=== PATIENT | female | born 1930 | race Caucasian/White ===

== ENCOUNTER 2017-06-12 13:21 | Day surgery (SDC) | payer OTHER ==
[~2017-06-12 13:21] MED LIST: ASPI81 PO; BP MEDICATION; CHOLESTEROL MED; DARV PO; POTA-243 PO
[2017-06-12 14:45] VITALS: BP 140/67; PULSE 68; O2SAT 96
--- NOTE | 2017-06-12 15:04 | RADRPT ---
EXAM DATE/TIME: 06/12/2017 13:44 [facility] COMPARISON: No previous studies available for comparison. EXTERNAL COMPARISON: [facility], US THYROID, May 23 2017 INDICATIONS : Right thyroid mass. MEDICAL HISTORY : Hypercholesterolemia. Hypertension. Osteoporosis. SURGICAL HISTORY : Hysterectomy. Thyroidectomy. ENCOUNTER: Initial ACUITY: 3 weeks PAIN SCORE: 2/10 LOCATION: Right neck ORGAN: Right thyroid lobe 4.0 x 4.2 x 2.7 cm SPECIMENS: Four fine needle aspirate(s) submitted for pathologic evaluation. DEVICE: 22 gauge needle Post procedure scanning reveals no hematoma or other complication. The possibility does exist that the tissue obtained will be non-diagnostic. If the sample is non-luis gnostic a repeat biopsy or surgical biopsy may need to be performed. TECHNIQUE: 1. Ultrasound guidance for needle biopsy. 2. Needle biopsy. The risks, benefits, and alternatives to ultrasound guided needle biopsy were explained to the patien t in detail including the risk of bleeding and infection. Written and verbal informed consent was ob tained. With the patient on the ultrasound table, images were obtained. Overlying skin was prepped and drape d in the usual sterile fashion and Lidocaine was utilized as a local anesthetic. A needle was advanced into the identified target and the number of specimens as above obtained and nunez bmitted for pathologic evaluation. The patient tolerated the procedure well and left the ultrasound suite in stable condition. CONCLUSION: 1. Ultrasound-guided fine-needle aspirations of right thyroid lobe nodule. Shivam Alexander MD on June 12, 2017 at 15:02 Board Certified Radiologist. This report was verified electronically.
[2017-06-12 15:05] VITALS: BP 133/76; PULSE 62; RESP 16; TEMP 98.6; O2SAT 94
[2017-06-12 15:15] VITALS: BP 134/68; PULSE 68; RESP 16; O2SAT 96
[2017-06-13] MEDS ORDERED: LIDOCAINE HCL 1% 20 ML VIAL ONE (08:55)
== END 2017-06-12 15:20 | disposition home or self-care (01) ==
LOC: HRAD 13:21 → HRIP 13:22 → HRAD 15:20
PROVIDERS: ATTEND Internal Medicine
DX: E07.89 Other specified disorders of thyroid (principal); I10 Essential (primary) hypertension; E78.00 Pure hypercholesterolemia, unspecified; M81.0 Age-related osteoporosis without current pathological fracture; Z90.710 Acquired absence of both cervix and uterus
CPT/HCPCS: 10022; 76942; 88172; 88173

== ENCOUNTER 2018-03-03 13:37 | Emergency (ER) | payer OTHER ==
[~2018-03-03] VITALS: Ht 152.4 cm; Wt 47.0 kg
[2018-03-03] MEDS ORDERED: IOHEXOL 350 MG/ML 10 ML VIAL (for RAD DIAG) IVCONTRAST ONE ×2 (13:38→17:04)
[2018-03-03 13:49] VITALS: BP 150/88; PULSE 68; RESP 19; TEMP 98; O2SAT 94
[2018-03-03] MEDS ORDERED: SODIUM CHLORID 0.9% 500 ML INJ 500 ML IV ONE (14:00)
[2018-03-03 14:18] LABS: AUTOMATED NEUTROPHIL # 7.8 TH/MM3 (1.8-7.7); BASOPHIL # 0.1 TH/MM3 (0-0.2); BASOPHIL % 0.6 % (0.0-2.0); EOSINOPHIL % 0.2 % (0.0-4.0); HEMATOCRIT 38.2 % (35.0-46.0); HEMOGLOBIN 13.2 GM/DL (11.6-15.3); LYMPH % 13.4 % (9.0-44.0); LYMPHOCYTE # 1.3 TH/MM3 (1.0-4.8); MEAN CORPUSCULAR HEMOGLOBIN 30.8 PG (27.0-34.0); MEAN CORPUSCULAR HGB CONC 34.6 % (32.0-36.0); MEAN PLATELET VOLUME 9.3 FL (7.0-11.0); MONO % 5.5 % (0.0-8.0); MONOCYTE # 0.5 TH/MM3 (0-0.9); NEUT % 80.3 % (16.0-70.0); PLATELET COUNT 152 TH/MM3 (150-450); RED BLOOD COUNT 4.29 MIL/MM3 (4.00-5.30); RED CELL DISTRIBUTION WIDTH 12.9 % (11.6-17.2); WHITE BLOOD COUNT 9.8 TH/MM3 (4.0-11.0)
--- NOTE | 2018-03-03 14:25 | RADRPT ---
EXAM DATE/TIME: 03/03/2018 14:02 [facility] COMPARISON: No previous studies available for comparison. INDICATIONS : Chest discomfort; vomiting. MEDICAL HISTORY : Hypercholesterolemia. Hypertension. Osteoporosis. SURGICAL HISTORY : None. ENCOUNTER: Initial ACUITY: 1 day PAIN SCORE: 0/10 LOCATION: Bilateral chest FINDINGS: Elevation of the left hemidiaphragm. Moderate parenchymal changes right base. Cardiomegaly with mil d interstitial edema. There is no pneumothorax or pleural effusion. CONCLUSION: Underated moderate and consolidated changes right lower lobe. David Macias MD FACR on March 03, 2018 at 14:13 Board Certified Radiologist. This report was verified electronically.
[2018-03-03 14:30] LABS: ALBUMIN 3.3 GM/DL (3.4-5.0); ALT (GPT) 22 U/L (10-53); AST (GOT) 31 U/L (15-37); BICARBONATE 23.5 MEQ/L (21.0-32.0); BLOOD UREA NITROGEN 19 MG/DL (7-18); CALCIUM 9.3 MG/DL (8.5-10.1); CHLORIDE 102 MEQ/L (98-107); CREATININE 0.85 MG/DL (0.50-1.00); GLOMERULAR FILTRATION RATE 63 ML/MIN (>89); GLUCOSE,RANDOM 135 MG/DL (74-106); SODIUM (NA) 138 MEQ/L (136-145)
[2018-03-03 14:33] LABS: ALKALINE PHOSPHATASE 72 U/L (45-117); TOTAL BILIRUBIN ADULT 1.1 MG/DL (0.2-1.0); TOTAL PROTEIN 7.6 GM/DL (6.4-8.2)
--- NOTE | 2018-03-03 16:00 | RADRPT ---
EXAM DATE/TIME: 03/03/2018 15:23 [facility] COMPARISON: No previous studies available for comparison. INDICATIONS : Fall,right side pain IV CONTRAST: 80 cc Omnipaque 350 (iohexol) IV ; Cumulative dose for multiple exams. RADIATION DOSE: 5.06 CTDIvol (mGy) ; Combined studies - Thorax/Abdomen/Pelvis MEDICAL HISTORY : Hypertension. SURGICAL HISTORY : Thyroidectomy. Hysterectomy. ENCOUNTER: Initial ACUITY: 3 days PAIN SCALE: 7/10 LOCATION: Right chest TECHNIQUE: Volumetric scanning of the chest was performed. Using automated exposure control and adjustment of t he mA and/or kV according to patient size, radiation dose was kept as low as reasonably achievable to obtain optimal diagnostic quality images. DICOM format image data is available electronically for review and comparison. Follow-up recommendations for detected pulmonary nodules are based at a minimum on nodule size and pa tient risk factors according to Fleischner Society Guidelines. FINDINGS: LUNGS: Mild interstitial prominence is present without pneumothorax. PLEURA: Trace pleural effusion on the right MEDIASTINUM: Mild cardiomegaly with moderate coronary calcifications. AXILLAE: Within normal limits. No lymphadenopathy. SKELETAL: No displaced fracture MISCELLANEOUS: 5 cm right renal cyst. 1 cm hemangioma right lobe of the liver 4.3 cm right thyroid nodule CONCLUSION: Negative for pneumothorax or rib fracture. Right renal cyst 4.3 cm right thyroid nodule David Macias MD FACR on March 03, 2018 at 15:55 Board Certified Radiologist. This report was verified electronically.
--- NOTE | 2018-03-03 16:02 | RADRPT ---
EXAM DATE/TIME: 03/03/2018 15:23 [facility] COMPARISON: No previous studies available for comparison. INDICATIONS : Fall right side pain IV CONTRAST: 80 cc Omnipaque 350 (iohexol) IV ; Cumulative dose for multiple exams. ORAL CONTRAST: No oral contrast ingested. RADIATION DOSE: 5.06 CTDIvol (mGy) ; Combined studies - Thorax/Abdomen/Pelvis MEDICAL HISTORY : Hypertension. SURGICAL HISTORY : Thyroidectomy. Hysterectomy. ENCOUNTER: Initial ACUITY: 1 day PAIN SCALE: 7/10 LOCATION: Right Abdomen TECHNIQUE: Volumetric scanning of the abdomen and pelvis was performed. Using automated exposure control and ad justment of the mA and/or kV according to patient size, radiation dose was kept as low as reasonably achievable to obtain optimal diagnostic quality images. DICOM format image data is available electro nically for review and comparison. FINDINGS: Trace to small right pleural effusion 1 cm hemangioma right lobe of the liver 5.3 cm right renal cyst Spleen, pancreas and left kidney unremarkable No free fluid Pelvic contents are unremarkable the decompressed bladder Review of bone windows reveals degenerative changes without fracture. Right hip appears normal. CONCLUSION: Negative for acute traumatic injury. Trace right pleural effusion, that may be related to congestive failure. David Macias MD FACR on March 03, 2018 at 15:57 Board Certified Radiologist. This report was verified electronically.
[2018-03-03] MEDS ORDERED: ONDANSETRON ODT 4 MG TAB PO ONE (16:30)
[2018-03-03] MEDS ORDERED: traMADol HCL 50 MG TAB PO ONE (16:30)
[2018-03-03 16:53] LABS: AMORPHOUS SEDIMENT, URINE RARE; BACTERIA, URINE RARE /hpf; BILIRUBIN, URINE NEG (NEG); BLOOD, URINE NEG (NEG); GLUCOSE,URINE NEG (NEG); KETONE, URINE TRACE mg/dL (NEG); MUCUS URINE FEW /lpf (OCC); NITRITE,URINE NEG (NEG); PH, URINE 6.5 (5.0-8.5); SQUAMOUS EPITHELIAL CELL URINE 1 /hpf (0-5); URINE COLOR YELLOW (YELLW/STRAW); URINE LEUKOCYTE ESTERASE LARGE (NEG)
[2018-03-03] MEDS ORDERED: cefTRIAXone INJ 1,000 MG in SODIUM CHLORIDE 0.9% INJ 100 ML IV ONE (17:15)
[2018-03-03] MEDS ORDERED: CEPH-460 PO (17:21)
--- NOTE | 2018-03-03 17:21 | PD ---
HPI Chief Complaint: Fall Time Seen by Provider: 13:43 Travel History International Travel<30 days: No Contact w/Intl Traveler<30days: No Traveled to known affect area: No History of Present Illness HPI This is an 87-year-old female who presents to the emergency department having fallen 4 days ago hurting her right side. She reports severe right-sided pain, constant, worse with movement, improved with rest. She says she had a difficulty getting up after she fell. She did not hit her head. For the past several days she has had increasing pain and she has had some vomiting this morning and feels nauseous. She has been having some trouble eating. She denies any chest pain or shortness of breath. PFSH Past Medical History High Cholesterol: Yes Diminished Hearing: No Hypertension: Yes Musculoskeletal: Yes (OSTEOPOROSIS) ?: Not Past Surgical History Hysterectomy: Yes Other Surgery: Yes (THYROIDECTOMY) Social History Alcohol Use: No Tobacco Use: Yes (1 AND 1/2 PPD) Substance Use: No Allergies-Medications (Allergen,Severity, Reaction): Coded Allergies: No Known Allergies (Verified Allergy, Unknown, 04/10/10) Reported Meds & Prescriptions Reported Meds & Active Scripts Active Keflex (Cephalexin) 500 Mg Cap 500 Mg PO Q12H 7 Days Darvocet-N 100 (Propoxyphene Napsylate/Acetam) Tab 1 Tab PO Q6 Reported [Cholesterol Med] [Bp Medication] Aspirin 81 Mg Tab 81 Mg PO DAILY K-Dur (Potassium Chloride) 10 Meq Tabcr 0 PO UNKNOWN DOSE Review of Systems Except as stated in HPI: all other systems reviewed are Neg Physical Exam Narrative GENERAL: Frail elderly female in no acute distress. SKIN: Focused skin assessment warm and dry. HEAD: Atraumatic. Normocephalic. EYES: Pupils equal and round. No injection or drainage. ENT: Moist mucous membranes NECK: Trachea midline. CARDIOVASCULAR: Regular rate and rhythm. No murmur appreciated. RESPIRATORY: Clear to auscultation. Breath sounds equal bilaterally. GASTROINTESTINAL: Abdomen soft, non-tender, nondistended. MUSCULOSKELETAL: Tender to palpation over the right posterior rib cage NEUROLOGICAL: Awake and alert. No obvious cranial nerve deficits. Moving all extremities. PSYCHIATRIC: Appropriate mood and affect; insight and judgment normal. Data Data Last Documented VS Vital Signs Date Time Temp Pulse Resp B/P (MAP) Pulse Ox O2 Delivery O2 Flow Rate FiO2 03/03/18 13:49 98.0 68 19 150/88 (108) 94 Room Air Orders Orders Complete Blood Count With Diff (03/03/18 13:50) Comprehensive Metabolic Panel (03/03/18 13:50) ^ Insert Iv (03/03/18 13:50) Urinalysis - C+S If Indicated (03/03/18 13:50) Creatine Kinase (Cpk) (03/03/18 13:50) Sodium Chlorid 0.9% 500 Ml Inj (Ns 500 M (03/03/18 14:00) Chest, Single Ap (03/03/18 ) Ct Thorax/ Chest W Iv Contrast (03/03/18 ) Ct Abd/Pel W Iv Contrast(Rout) (03/03/18 ) Iohexol 350 Inj (Omnipaque 350 Inj) (03/03/18 13:38) Tramadol (Ultram) (03/03/18 16:30) Ondansetron Odt (Zofran Odt) (03/03/18 16:30) Urine Culture (03/03/18 16:27) Ceftriaxone Inj (Rocephin Inj) (03/03/18 17:15) Labs Laboratory Tests Test 03/03/18 14:00 03/03/18 16:27 White Blood Count 9.8 TH/MM3 Red Blood Count 4.29 MIL/MM3 Hemoglobin 13.2 GM/DL Hematocrit 38.2 % Mean Corpuscular Volume 89.0 FL Mean Corpuscular Hemoglobin 30.8 PG Mean Corpuscular Hemoglobin Concent 34.6 % Red Cell Distribution Width 12.9 % Platelet Count 152 TH/MM3 Mean Platelet Volume 9.3 FL Neutrophils (%) (Auto) 80.3 % Lymphocytes (%) (Auto) 13.4 % Monocytes (%) (Auto) 5.5 % Eosinophils (%) (Auto) 0.2 % Basophils (%) (Auto) 0.6 % Neutrophils # (Auto) 7.8 TH/MM3 Lymphocytes # (Auto) 1.3 TH/MM3 Monocytes # (Auto) 0.5 TH/MM3 Eosinophils # (Auto) 0.0 TH/MM3 Basophils # (Auto) 0.1 TH/MM3 CBC Comment AUTO DIFF Differential Comment AUTO DIFF CONFIRMED Platelet Estimate NORMAL Platelet Morphology Comment NORMAL Red Cell Morphology Comment NORMAL Blood Urea Nitrogen 19 MG/DL Creatinine 0.85 MG/DL Random Glucose 135 MG/DL Total Protein 7.6 GM/DL Albumin 3.3 GM/DL Calcium Level 9.3 MG/DL Alkaline Phosphatase 72 U/L Aspartate Amino Transf (AST/SGOT) 31 U/L Alanine Aminotransferase (ALT/SGPT) 22 U/L Total Bilirubin 1.1 MG/DL Sodium Level 138 MEQ/L Potassium Level 3.5 MEQ/L Chloride Level 102 MEQ/L Carbon Dioxide Level 23.5 MEQ/L Anion Gap 13 MEQ/L Estimat Glomerular Filtration Rate 63 ML/MIN Total Creatine Kinase 47 U/L Urine Color YELLOW Urine Turbidity HAZY Urine pH 6.5 Urine Specific [place] 1.050 Urine Protein TRACE mg/dL Urine Glucose (UA) NEG mg/dL Urine Ketones TRACE mg/dL Urine Occult Blood NEG Urine Nitrite NEG Urine Bilirubin NEG Urine Urobilinogen 2.0 MG/DL Urine Leukocyte Esterase LARGE Urine RBC 6 /hpf Urine WBC 97 /hpf Urine Squamous Epithelial Cells 1 /hpf Urine Amorphous Sediment RARE Urine Bacteria RARE /hpf Urine Mucus FEW /lpf Microscopic Urinalysis Comment CULTURE INDICATED MDM Medical Decision Making Medical Screen Exam Complete: Yes Emergency Medical Condition: Yes Interpretation(s) No leukocytosis Electrolytes are reassuring Urinalysis demonstrates urinary tract infection Last 24 hours Impressions Chest X-Ray 03/03/18 0000 Signed Impressions: Service Date/Time: Saturday, March 03, 2018 14:02 - CONCLUSION: Underated moderate and consolidated changes right lower lobe. David Macias MD FACR Chest CT 03/03/18 0000 Signed Impressions: Service Date/Time: Saturday, March 03, 2018 15:23 - CONCLUSION: Negative for pneumothorax or rib fracture. Right renal cyst 4.3 cm right thyroid nodule David Macias MD FACR Abdomen/Pelvis CT 03/03/18 0000 Signed Impressions: Service Date/Time: Saturday, March 03, 2018 15:23 - CONCLUSION: Negative for acute traumatic injury. Trace right pleural effusion, that may be related to congestive failure. David Macias MD FACR Differential Diagnosis Rib fracture, pulmonary contusion, pneumothorax, liver laceration, pelvic fracture Narrative Course This is an 87-year-old female who had a fall 4 days ago reporting right-sided back pain and some vomiting. Her labs are all reassuring. CT chest abdomen pelvis is unremarkable with no obvious broken ribs, or underlying lung injury or liver injury. She does have a urinary tract infection which may be contributing to her symptoms. She was given a dose of Rocephin. I think the patient would also benefit from home health care for evaluation for fall risk. Otherwise patient I think the patient can be discharged home on oral antibiotics for urinary tract infection. Diagnosis Primary Impression: Urinary tract infection Qualified Codes: N30.01 - Acute cystitis with hematuria Patient Instructions: General Instructions Additional Instructions: If you develop fever, persistent vomiting, back pain, or inability to eat return to the emergency department as your urine infection may have progressed to a kidney infection. Complete your antibiotics as prescribed. Stay well hydrated with Gatorade or water. Followup with your primary care physician in 2-3 days if your symptoms have not resolved. Med/Other Pt SpecificInfo: Prescription(s) given Scripts Cephalexin (Keflex) 500 Mg Cap 500 MG PO Q12H for Infection for 7 Days, #14 CAP 0 Refills Prov: Danni Avendaño MD 03/03/18 Disposition: 01 DISCHARGE HOME Condition: Stable Danni Avendaño MD March 03, 2018 17:21
[2018-03-03 18:34] VITALS: BP 158/89; PULSE 104; RESP 12; O2SAT 94
== END 2018-03-03 19:03 | disposition home or self-care (01) ==
LOC: NEPC 13:37
DX: N30.01 Acute cystitis with hematuria (principal); F17.200 Nicotine dependence, unspecified, uncomplicated; E78.00 Pure hypercholesterolemia, unspecified; I10 Essential (primary) hypertension
CPT/HCPCS: 71045; 71260; 74177; 80053; 81001; 82550; 85025; 87086; 96361; 96365; 99285; J0696; J7040; Q9967

== ENCOUNTER 2018-03-29 10:46 | Observation (INO) | payer MEDICARE, OTHER ==
[~2018-03-29 10:46] MED LIST changes: +CEPH-460 PO
[2018-03-29 10:48] VITALS: BP 121/65; PULSE 75; RESP 16; TEMP 97.7; O2SAT 96
--- NOTE | 2018-03-29 11:02 | PD ---
HPI Chief Complaint: General Weakness Time Seen by Provider: 10:57 Travel History International Travel<30 days: No Contact w/Intl Traveler<30days: No Traveled to known affect area: No History of Present Illness HPI Family brings the patient in for generalized weakness so severe now that she is not unable to ambulate without assistance. She was brought previously she was not quite as bad per family, but she was found and diagnosed with a UTI. Despite getting medications for antibiotics for the UTI she does not seem to be improving. PCP is No known drug allergies Past medical history consistent with hypercholesterolemia, hypertension, hysterectomy, osteoporosis, and the patient also had a thyroidectomy and also has a social history of being a 1-1/2 pack per day cigarette smoker PFS Past Medical History High Cholesterol: Yes Diminished Hearing: No Hypertension: Yes Musculoskeletal: Yes (OSTEOPOROSIS) Past Surgical History Hysterectomy: Yes Other Surgery: Yes (THYROIDECTOMY) Social History Alcohol Use: No Tobacco Use: Yes (1 AND 1/2 PPD) Substance Use: No Allergies-Medications (Allergen,Severity, Reaction): Coded Allergies: No Known Allergies (Verified Allergy, Unknown, 04/10/10) Reported Meds & Prescriptions Reported Meds & Active Scripts Active Darvocet-N 100 (Propoxyphene Napsylate/Acetam) Tab 1 Tab PO Q6 Reported [Cholesterol Med] [Bp Medication] Aspirin 81 Mg Tab 81 Mg PO DAILY K-Dur (Potassium Chloride) 10 Meq Tabcr 0 PO UNKNOWN DOSE Review of Systems General / Constitutional: No: Fever Eyes: No: Visual changes HENT: No: Headaches Cardiovascular: No: Chest Pain or Discomfort Respiratory: No: Shortness of Breath Gastrointestinal: No: Abdominal Pain Genitourinary: No: Dysuria Musculoskeletal: No: Pain Skin: No Rash Neurologic: Positive: Weakness (Generalized) Psychiatric: No: Depression Endocrine: No: Polydipsia Hematologic/Lymphatic: No: Easy Bruising Physical Exam Narrative GENERAL: Pleasant appearing elderly lady SKIN: Warm and dry. HEAD: Atraumatic. Normocephalic. EYES: Pupils equal and round. No scleral icterus. No injection or drainage. ENT: No nasal bleeding or discharge. Mucous membranes pink and moist. NECK: Trachea midline. No JVD. CARDIOVASCULAR: Regular rate and rhythm. RESPIRATORY: No accessory muscle use. Clear to auscultation. Breath sounds equal bilaterally. GASTROINTESTINAL: Abdomen soft, non-tender, nondistended. MUSCULOSKELETAL: Extremities without clubbing, cyanosis, or edema. No obvious deformities. NEUROLOGICAL: Awake and alert. No obvious cranial nerve deficits. Motor grossly within normal limits. Five out of 5 muscle strength in the arms and legs. Normal speech. PSYCHIATRIC: Appropriate mood and affect; insight and judgment normal. Data Data Last Documented VS Orders Orders Complete Blood Count With Diff (03/29/18 11:09) Comprehensive Metabolic Panel (03/29/18 11:09) Lipase (03/29/18 11:09) Prothrombin Time / Inr (Pt) (03/29/18 11:09) Act Partial Throm Time (Ptt) (03/29/18 11:09) Urinalysis - C+S If Indicated (03/29/18 11:09) Iv Access Insert/Monitor (03/29/18 11:09) Ecg Monitoring (03/29/18 11:09) Oximetry (03/29/18 11:09) NPO (03/29/18 11:09) Sodium Chloride 0.9% Flush (Ns Flush) (03/29/18 11:15) Electrocardiogram (03/29/18 11:09) B-Type Natriuretic Peptide (03/29/18 11:09) Ckmb (Isoenzyme) Profile (03/29/18 11:09) Magnesium (Mg) (03/29/18 11:09) Troponin I (03/29/18 11:09) Urine Culture (03/29/18 11:49) Ceftriaxone Inj (Rocephin Inj) (03/29/18 12:45) Admit Order (Ed Use Only) (03/29/18 13:41) Labs Laboratory Tests Test 03/29/18 11:24 03/29/18 11:49 White Blood Count 7.4 TH/MM3 Red Blood Count 4.49 MIL/MM3 Hemoglobin 13.5 GM/DL Hematocrit 40.0 % Mean Corpuscular Volume 89.0 FL Mean Corpuscular Hemoglobin 30.0 PG Mean Corpuscular Hemoglobin Concent 33.8 % Red Cell Distribution Width 13.0 % Platelet Count 175 TH/MM3 Mean Platelet Volume 9.7 FL Neutrophils (%) (Auto) 68.9 % Lymphocytes (%) (Auto) 17.7 % Monocytes (%) (Auto) 12.3 % Eosinophils (%) (Auto) 0.7 % Basophils (%) (Auto) 0.4 % Neutrophils # (Auto) 5.1 TH/MM3 Lymphocytes # (Auto) 1.3 TH/MM3 Monocytes # (Auto) 0.9 TH/MM3 Eosinophils # (Auto) 0.1 TH/MM3 Basophils # (Auto) 0.0 TH/MM3 CBC Comment DIFF FINAL Differential Comment Prothrombin Time 11.7 SEC Prothromb Time International Ratio 1.2 RATIO Activated Partial Thromboplast Time 28.0 SEC Blood Urea Nitrogen 27 MG/DL Creatinine 0.83 MG/DL Random Glucose 87 MG/DL Total Protein 7.8 GM/DL Albumin 3.0 GM/DL Calcium Level 8.4 MG/DL Magnesium Level 2.1 MG/DL Alkaline Phosphatase 83 U/L Aspartate Amino Transf (AST/SGOT) 50 U/L Alanine Aminotransferase (ALT/SGPT) 40 U/L Total Bilirubin 0.7 MG/DL Sodium Level 139 MEQ/L Potassium Level 3.4 MEQ/L Chloride Level 100 MEQ/L Carbon Dioxide Level 27.7 MEQ/L Anion Gap 11 MEQ/L Estimat Glomerular Filtration Rate 65 ML/MIN Total Creatine Kinase 31 U/L Troponin I LESS THAN 0.02 NG/ML B-Type Natriuretic Peptide 23 PG/ML Lipase 331 U/L Urine Color DARK-YELLOW Urine Turbidity CLOUDY Urine pH 6.0 Urine Specific [place] 1.027 Urine Protein 30 mg/dL Urine Glucose (UA) NEG mg/dL Urine Ketones NEG mg/dL Urine Occult Blood TRACE Urine Nitrite NEG Urine Bilirubin NEG Urine Urobilinogen 4.0 MG/DL Urine Leukocyte Esterase LARGE Urine RBC 15 /hpf Urine WBC /hpf Urine Squamous Epithelial Cells 9 /hpf Urine Bacteria OCC /hpf Urine Mucus MANY /lpf Microscopic Urinalysis Comment CULTURE INDICATED MDM Medical Decision Making Medical Screen Exam Complete: Yes Emergency Medical Condition: Yes Medical Record Reviewed: Yes Interpretation(s) EKG shows normal sinus rhythm, 64 bpm, incomplete right bundle branch block pattern, no evidence of any ST elevation MA pattern. Differential Diagnosis UTI versus pneumonia versus anemia versus dehydration versus electrolyte abnormalities Narrative Course CBC shows no leukocytosis, no anemia, normal platelet count, no left shift Coagulation profile is within normal limits Electrolytes are all within normal limits, normal kidney liver and pancreatic functions First set of cardiac enzymes negative Beta natruretic peptide normal at 23 UA had a large amount of leukocyte esterase with occasional bacteria consistent with a UTI Critical Care Narrative CRITICAL CARE NOTE: With evaluation of the patient, labs, EKG, receipt of radiologic studies, administration of medications, reevaluation the patient and discussion of the patient with the admitting physicians, the total critical care time was [30] minutes. Time to perform other separately billable procedures was not included in the critical care time. Diagnosis Primary Impression: Generalized weakness Additional Impressions: Confusion UTI Admitting Information Admitting Physician Requests: Observation Scripts Cefuroxime (Cefuroxime) 500 Mg Tab 500 MG PO BID for Infection, #14 TAB 0 Refills Prov: Harrison Alcaraz MD 03/31/18 Lukasz Pineda MD Mar 29, 2018 11:02
[2018-03-29] MEDS ORDERED: SODIUM CHLORIDE 0.9% FLUSH 10 ML FLUSH IV FLUSH PRN ×2 (11:15→14:15)
[2018-03-29 12:02] LABS: AUTOMATED NEUTROPHIL # 5.1 TH/MM3 (1.8-7.7); BASOPHIL % 0.4 % (0.0-2.0); EOSINOPHIL # 0.1 TH/MM3 (0-0.4); EOSINOPHIL % 0.7 % (0.0-4.0); HEMOGLOBIN 13.5 GM/DL (11.6-15.3); LYMPH % 17.7 % (9.0-44.0); LYMPHOCYTE # 1.3 TH/MM3 (1.0-4.8); MEAN CORPUSCULAR HGB CONC 33.8 % (32.0-36.0); MEAN PLATELET VOLUME 9.7 FL (7.0-11.0); MONO % 12.3 % (0.0-8.0); MONOCYTE # 0.9 TH/MM3 (0-0.9); NEUT % 68.9 % (16.0-70.0); PLATELET COUNT 175 TH/MM3 (150-450); RED BLOOD COUNT 4.49 MIL/MM3 (4.00-5.30); WHITE BLOOD COUNT 7.4 TH/MM3 (4.0-11.0)
[2018-03-29 12:07] LABS: INTERNATIONAL NORMALIZED RATIO 1.2 RATIO; PROTHROMBIN TIME - PATIENT 11.7 SEC (9.8-11.6)
[2018-03-29 12:22] LABS: BACTERIA, URINE OCC /hpf; BILIRUBIN, URINE NEG (NEG); BLOOD, URINE TRACE (NEG); GLUCOSE,URINE NEG (NEG); KETONE, URINE NEG (NEG); MUCUS URINE MANY /lpf (OCC); NITRITE,URINE NEG (NEG); SQUAMOUS EPITHELIAL CELL URINE 9 /hpf (0-5); URINE COLOR DARK-YELLOW (YELLW/STRAW); URINE LEUKOCYTE ESTERASE LARGE (NEG)
[2018-03-29 12:27] LABS: ALKALINE PHOSPHATASE 83 U/L (45-117); ALT (GPT) 40 U/L (10-53); AST (GOT) 50 U/L (15-37); BICARBONATE 27.7 MEQ/L (21.0-32.0); BLOOD UREA NITROGEN 27 MG/DL (7-18); CALCIUM 8.4 MG/DL (8.5-10.1); CHLORIDE 100 MEQ/L (98-107); CREATININE 0.83 MG/DL (0.50-1.00); GLOMERULAR FILTRATION RATE 65 ML/MIN (>89); GLUCOSE,RANDOM 87 MG/DL (74-106); MAGNESIUM 2.1 MG/DL (1.5-2.5); SODIUM (NA) 139 MEQ/L (136-145); TOTAL BILIRUBIN ADULT 0.7 MG/DL (0.2-1.0); TOTAL PROTEIN 7.8 GM/DL (6.4-8.2); TROPONIN I LESS THAN 0.02 NG/ML (0.02-0.05)
[2018-03-29] MEDS ORDERED: cefTRIAXone INJ 1,000 MG in SODIUM CHLORIDE 0.9% INJ 100 ML IV ONE (12:45)
[2018-03-29] MEDS ORDERED: NALOXONE HCL 0.4 MG/ML AMP IV PUSH PRN (14:15)
[2018-03-29] MEDS ORDERED: ACETAMINOPHEN 325 MG TAB PO PRN (14:15)
--- NOTE | 2018-03-29 14:34 | HHI.HP ---
HPI Service [facility] Hospitalists Primary Care Physician Cecilio Cole MD Admission Diagnosis CONFUSION, UTI, DEBILITY(UNABLE TO AMBULATE) Diagnoses: Chief Complaint: Weakness Travel History International Travel<30 Days: No Contact w/Intl Traveler <30 Da: No Traveled to Known Affected Are: No History of Present Illness This is an 87-year-old female with past medical history as stated below who presents to [facility] brought in by family members due to increasing generalized weakness so severe now that the patient was not able to ambulate without assistance. The patient states that approximately a few weeks ago she has been having a poor appetite not eating or drinking much fluids and sleeping more than usual. Upon review of her medical records it is found that the patient brought the patient previously to the hospital she was found to have a UTI which was treated with oral antibiotics. Patient was previously seen in the emergency department March 03. At that time urine culture did not show any growth in 48 hours. The patient denies currently any chest pain or shortness of breath, headache, dizziness. States that she has been feeling nauseous for the past few days but denies fevers or chills. Patient also denies vomiting. The patient denies any abdominal pain at the time of interview. As per ED physician accounts, the family stated also that the patient was more confused than usual. Review of Systems As per HPI, other systems reviewed by me and negative. Past Family Social History Past Medical History 1. Hypertension. 2. Hyperlipidemia. 3. Osteoporosis. Past Surgical History 1. Hysterectomy. 2. Thyroidectomy. Reported Medications Keflex (Cephalexin) 500 Mg Cap 500 Mg PO Q12H 7 Days Darvocet-N 100 (Propoxyphene Napsylate/Acetam) Tab 1 Tab PO Q6 [Cholesterol Med] [Bp Medication] Aspirin 81 Mg Tab 81 Mg PO DAILY K-Dur (Potassium Chloride) 10 Meq Tabcr 0 PO UNKNOWN DOSE Allergies: Coded Allergies: No Known Allergies (Verified Allergy, Unknown, 04/10/10) Active Ordered Medications Current Medications Medications (Trade) Dose Ordered Sig/Marcus Route Start Time Stop Time Status Last Admin (NS Flush) 2 ml UNSCH PRN IV FLUSH 03/29/18 11:15 (NS Flush) 2 ml UNSCH PRN IV FLUSH 03/29/18 14:15 UNV (NS Flush) 2 ml BID IV FLUSH 03/29/18 21:00 UNV (Tylenol) 650 mg Q4H PRN PO 03/29/18 14:15 UNV (Lovenox Inj) 40 mg Q24H SQ 03/29/18 14:15 UNV (Narcan Inj) 0.4 mg UNSCH PRN IV PUSH 03/29/18 14:15 UNV Family History Father had brain cancer. Mother of an old age. Patient brother of an GA in his 40s. Social History The patient states that she smokes half a pack per day. Denies using drugs or drinking alcohol. Physical Exam Vital Signs Vital Signs Date Time Temp Pulse Resp B/P (MAP) Pulse Ox O2 Delivery O2 Flow Rate FiO2 03/29/18 11:05 Room Air 03/29/18 10:48 97.7 75 16 121/65 (83) 96 Physical Exam GENERAL: Very thin, elderly, frail patient, not in acute distress. SKIN: No rashes, ecchymoses or lesions. Cool and dry. HEAD: Atraumatic. Normocephalic. No temporal or scalp tenderness. EYES: Pupils equal round and reactive. Extraocular motions intact. No scleral icterus. No injection or drainage. ENT: Nose without bleeding, purulent drainage or septal hematoma. Throat without erythema, tonsillar hypertrophy or exudate. Uvula midline. Airway patent. NECK: Trachea midline. No JVD or lymphadenopathy. Supple, nontender, no meningeal signs. CARDIOVASCULAR: Regular rate and rhythm without murmurs, gallops, or rubs. RESPIRATORY: Clear to auscultation. Breath sounds equal bilaterally. No wheezes , rales, or rhonchi. GASTROINTESTINAL: Abdomen soft, mildly tender in hypogastric region, nondistended. No hepato-splenomegaly, or palpable masses. No guarding. MUSCULOSKELETAL: Extremities without clubbing, cyanosis, or edema. No joint tenderness, effusion, or edema noted. No calf tenderness. Negative Homans sign bilaterally. NEUROLOGICAL: Awake and alert. Cranial nerves II through XII intact. Motor and sensory grossly within normal limits. Five out of 5 muscle strength in all muscle groups. Normal speech. Laboratory Laboratory Tests Test 03/29/18 11:24 03/29/18 11:49 White Blood Count 7.4 Red Blood Count 4.49 Hemoglobin 13.5 Hematocrit 40.0 Mean Corpuscular Volume 89.0 Mean Corpuscular Hemoglobin 30.0 Mean Corpuscular Hemoglobin Concent 33.8 Red Cell Distribution Width 13.0 Platelet Count 175 Mean Platelet Volume 9.7 Neutrophils (%) (Auto) 68.9 Lymphocytes (%) (Auto) 17.7 Monocytes (%) (Auto) 12.3 Eosinophils (%) (Auto) 0.7 Basophils (%) (Auto) 0.4 Neutrophils # (Auto) 5.1 Lymphocytes # (Auto) 1.3 Monocytes # (Auto) 0.9 Eosinophils # (Auto) 0.1 Basophils # (Auto) 0.0 CBC Comment DIFF FINAL Differential Comment Prothrombin Time 11.7 Prothromb Time International Ratio 1.2 Activated Partial Thromboplast Time 28.0 Blood Urea Nitrogen 27 Creatinine 0.83 Random Glucose 87 Total Protein 7.8 Albumin 3.0 Calcium Level 8.4 Magnesium Level 2.1 Alkaline Phosphatase 83 Aspartate Amino Transf (AST/SGOT) 50 Alanine Aminotransferase (ALT/SGPT) 40 Total Bilirubin 0.7 Sodium Level 139 Potassium Level 3.4 Chloride Level 100 Carbon Dioxide Level 27.7 Anion Gap 11 Estimat Glomerular Filtration Rate 65 Total Creatine Kinase 31 Troponin I LESS THAN 0.02 B-Type Natriuretic Peptide 23 Lipase 331 Urine Color DARK-YELLOW Urine Turbidity CLOUDY Urine pH 6.0 Urine Specific [place] 1.027 Urine Protein 30 Urine Glucose (UA) NEG Urine Ketones NEG Urine Occult Blood TRACE Urine Nitrite NEG Urine Bilirubin NEG Urine Urobilinogen 4.0 Urine Leukocyte Esterase LARGE Urine RBC 15 Urine WBC Urine Squamous Epithelial Cells 9 Urine Bacteria OCC Urine Mucus MANY Microscopic Urinalysis Comment CULTURE INDICATED Date/Time Source Procedure Growth Status 03/29/18 11:49 Urine Clean Catch Urine Culture Pending Received Result Diagram: 03/29/18 1124 03/29/18 1124 Caprini VTE Risk Assessment Caprini VTE Risk Assessment: Mod/High Risk (score >= 2) Caprini Risk Assessment Model Point Value = 1 Point Value = 2 Point Value = 3 Point Value = 5 Age 41-60 Minor surgery BMI > 25 kg/m2 Swollen legs Varicose veins or History of unexplained or recurrent spontaneous Oral contraceptives or hormone replacement Sepsis (< 1 month) Serious lung disease, including pneumonia (< 1 month) Abnormal pulmonary function Acute myocardial infarction Congestive heart failure (< 1 month) History of inflammatory bowel disease Medical patient at bed rest Age 61-74 Arthroscopic surgery Major open surgery (> 45 min) Laparoscopic surgery (> 45 min) Malignancy Confined to bed (> 72 hours) Immobilizing plaster cast Central venous access Age >= 75 History of VTE Family history of VTE Factor V Leiden Prothrombin [id number] Lupus anticoagulant Anticardiolipin antibodies Elevated serum homocysteine Heparin-induced thrombocytopenia Other congenital or acquired thrombophilia Stroke (< 1 month) Elective arthroplasty Hip, pelvis, or leg fracture Acute spinal cord injury (< 1 month) Prophylaxis Regimen Total Risk Factor Score Risk Level Prophylaxis Regimen 0-1 Low Early ambulation 2 Moderate Order ONE of the following: *Sequential Compression Device (SCD) *Heparin 5000 units SQ BID 3-4 Higher Order ONE of the following medications: *Heparin 5000 units SQ TID *Enoxaparin/Lovenox 40 mg SQ daily (WT < 150 kg, CrCl > 30 mL/min) *Enoxaparin/Lovenox 30 mg SQ daily (WT < 150 kg, CrCl > 10-29 mL/min) *Enoxaparin/Lovenox 30 mg SQ BID (WT < 150 kg, CrCl > 30 mL/min) AND/OR *Sequential Compression Device (SCD) 5 or more Highest Order ONE of the following medications: *Heparin 5000 units SQ TID (Preferred with Epidurals) *Enoxaparin/Lovenox 40 mg SQ daily (WT < 150 kg, CrCl > 30 mL/min) *Enoxaparin/Lovenox 30 mg SQ daily (WT < 150 kg, CrCl > 10-29 mL/min) *Enoxaparin/Lovenox 30 mg SQ BID (WT < 150 kg, CrCl > 30 mL/min) AND *Sequential Compression Device (SCD) Assessment and Plan Problem List: (1) UTI (urinary tract infection) ICD Code: N39.0 - Urinary tract infection, site not specified Plan: UA positive with cloudy urine, large leukocyte esterase and innumerable WBCs. Place patient on outpatient observation. The patient was given IV Rocephin in the emergency department. I will continue with IV Rocephin 2 g IV daily. Follow-up urine cultures. (2) Weakness generalized ICD Code: R53.1 - Weakness Status: Acute Plan: Patient with worsening generalized weakness likely secondary to urinary tract infection and poor oral intake. Physical therapy consultation. (3) Altered mental status ICD Code: R41.82 - Altered mental status, unspecified Plan: As per ED physician reports, family reported that the patient was more confused than usual. Suspected encephalopathy secondary to UTI. However patient is fully awake and alert and oriented 3 at the time of interview. Continue to monitor neurological status. (4) Hypokalemia ICD Code: E87.6 - Hypokalemia Plan: Likely due to decreased oral intake secondary to UTI and associated nausea. Replace with oral potassium chloride and continue to monitor BMP. (5) Decreased appetite ICD Code: R63.0 - Anorexia Plan: Likely secondary to urinary tract infection. Dietitian consult. (6) Nausea ICD Code: R11.0 - Nausea Status: Acute Plan: Likely secondary to urinary tract infection. We will place on Zofran ODT. Assessment and Plan Lovenox for DVT prophylaxis. Discussed Condition With ED physician, patient. Problem Qualifiers (1) UTI (urinary tract infection): Qualified Codes: N30.00 - Acute cystitis without hematuria (2) Altered mental status: Qualified Codes: R41.82 - Altered mental status, unspecified Harrison Alcaraz MD Mar 29, 2018 14:33
--- NOTE | 2018-03-29 14:40 | EKG ---
Date Performed: 03/29/2018 Time Performed: 11:27:46 PTAGE: 87 years EKG: Sinus rhythm INCOMPLETE RIGHT BUNDLE BRANCH BLOCK BORDERLINE ECG NO PREVIOUS TRACING DOCTOR: Tan Hurley Interpretating Date/Time 03/29/2018 14:39:14
[2018-03-29] MEDS ORDERED: POTASSIUM CHLORIDE 10 MEQ CONTROLLED RELEASE TAB PO ONE (14:45)
[2018-03-29] MEDS ORDERED: ONDANSETRON ODT 4 MG TAB PO PRN (14:45)
[2018-03-29 14:52] VITALS: BP 142/89
[2018-03-29] MEDS: ENOXAPARIN SODIUM 40 MG/0.4 ML SYRINGE SQ SCH (15:09)
[2018-03-29 15:41] VITALS: BP 110/55; PULSE 57; RESP 18; TEMP 97.9; O2SAT 94
[2018-03-29 16:48] VITALS: PULSE 57
[2018-03-29 20:00] VITALS: BP 102/57; PULSE 74; RESP 16; TEMP 95.6; O2SAT 94
[2018-03-29 20:30] VITALS: PULSE 73
[2018-03-29] MEDS: SODIUM CHLORIDE 0.9% FLUSH 10 ML FLUSH IV FLUSH SCH (21:51)
[2018-03-30] VITALS (10 sets, daily range): BP systolic 96–133; BP diastolic 51–64; PULSE 68–93; RESP 16–19; TEMP 97.5–98.2; O2SAT 95–96
[2018-03-30] MEDS: SODIUM CHLORIDE 0.9% FLUSH 10 ML FLUSH IV FLUSH SCH ×2 (08:49→20:39)
[2018-03-30 08:59] LABS: AUTOMATED NEUTROPHIL # 3.4 TH/MM3 (1.8-7.7); BASOPHIL % 0.4 % (0.0-2.0); EOSINOPHIL # 0.1 TH/MM3 (0-0.4); EOSINOPHIL % 2.1 % (0.0-4.0); HEMATOCRIT 39.8 % (35.0-46.0); HEMOGLOBIN 13.5 GM/DL (11.6-15.3); LYMPH % 25.4 % (9.0-44.0); LYMPHOCYTE # 1.4 TH/MM3 (1.0-4.8); MONO % 11.2 % (0.0-8.0); MONOCYTE # 0.6 TH/MM3 (0-0.9); NEUT % 60.9 % (16.0-70.0); PLATELET COUNT 168 TH/MM3 (150-450); RED BLOOD COUNT 4.52 MIL/MM3 (4.00-5.30); RED CELL DISTRIBUTION WIDTH 13.1 % (11.6-17.2); WHITE BLOOD COUNT 5.7 TH/MM3 (4.0-11.0)
[2018-03-30 09:27] LABS: ALBUMIN 2.8 GM/DL (3.4-5.0); AST (GOT) 56 U/L (15-37); BICARBONATE 22.1 MEQ/L (21.0-32.0); BLOOD UREA NITROGEN 30 MG/DL (7-18); CALCIUM 8.7 MG/DL (8.5-10.1); CHLORIDE 103 MEQ/L (98-107); CREATININE 0.81 MG/DL (0.50-1.00); GLOMERULAR FILTRATION RATE 67 ML/MIN (>89); GLUCOSE,RANDOM 82 MG/DL (74-106); SODIUM (NA) 136 MEQ/L (136-145)
[2018-03-30 09:28] LABS: ALT (GPT) 41 U/L (10-53)
[2018-03-30 09:31] LABS: ALKALINE PHOSPHATASE 82 U/L (45-117); TOTAL BILIRUBIN ADULT 0.6 MG/DL (0.2-1.0); TOTAL PROTEIN 7.5 GM/DL (6.4-8.2)
[2018-03-30] MEDS ORDERED: PNEUMOCOCCAL POLYVALENT INJ 25 MCG/0.5 ML SYR IM ONE (10:00)
[2018-03-30] MEDS ORDERED: POTASSIUM CHLORIDE 20 MEQ CONTROLLED RELEASE TAB PO ONE (11:00)
[2018-03-30] MEDS ORDERED: cefTRIAXone INJ 2,000 MG in SODIUM CHLORIDE 0.9% INJ 100 ML IV SCH (14:00)
--- NOTE | 2018-03-30 14:26 | EKG ---
Date Performed: 03/30/2018 Time Performed: 10:13:00 PTAGE: 87 years EKG: Sinus rhythm INCOMPLETE RIGHT BUNDLE BRANCH BLOCK BORDERLINE ECG PREVIOUS TRACING : 03/29/2018 11.27 Since the previous tracing, no significant change noted DOCTOR: Tan Hurley Interpretating Date/Time 03/30/2018 14:24:55
[2018-03-30] MEDS: ENOXAPARIN SODIUM 40 MG/0.4 ML SYRINGE SQ SCH (15:09)
--- NOTE | 2018-03-30 16:35 | HHI.PR ---
Subjective Remarks Nonsustained V. tach reported by RN. The patient denies chest pain or shortness of breath Objective Vitals Vital Signs Date Time Temp Pulse Resp B/P (MAP) Pulse Ox O2 Delivery O2 Flow Rate FiO2 03/30/18 12:00 97.9 85 18 99/58 (72) 96 03/30/18 09:29 68 03/30/18 08:00 98.1 93 19 123/61 (81) 95 03/30/18 04:00 98.2 72 18 104/56 (72) 95 03/30/18 00:30 74 03/30/18 00:02 97.5 68 18 96/51 (66) 95 03/29/18 20:30 73 03/29/18 20:00 95.6 74 16 102/57 (72) 94 03/29/18 16:48 57 I/O 03/29/18 03/29/18 03/29/18 03/30/18 03/30/18 03/30/18 06:59 14:59 22:59 06:59 14:59 22:59 Intake Total 100 ml Balance 100 ml Intake IV Total 100 ml # Voids 1 1 2 2 Result Diagram: 03/30/18 0800 03/30/18 0800 Objective Remarks GENERAL: Very thin, elderly, frail patient, not in acute distress. SKIN: No rashes, ecchymoses or lesions. Cool and dry. HEAD: Atraumatic. Normocephalic. No temporal or scalp tenderness. EYES: Pupils equal round and reactive. Extraocular motions intact. No scleral icterus. No injection or drainage. ENT: Nose without bleeding, purulent drainage or septal hematoma. Throat without erythema, tonsillar hypertrophy or exudate. Uvula midline. Airway patent. NECK: Trachea midline. No JVD or lymphadenopathy. Supple, nontender, no meningeal signs. CARDIOVASCULAR: Regular rate and rhythm without murmurs, gallops, or rubs. RESPIRATORY: Clear to auscultation. Breath sounds equal bilaterally. No wheezes , rales, or rhonchi. GASTROINTESTINAL: Abdomen soft, mildly tender in hypogastric region, nondistended. No hepato-splenomegaly, or palpable masses. No guarding. MUSCULOSKELETAL: Extremities without clubbing, cyanosis, or edema. No joint tenderness, effusion, or edema noted. No calf tenderness. Negative Homans sign bilaterally. NEUROLOGICAL: Awake and alert. Cranial nerves II through XII intact. Motor and sensory grossly within normal limits. Five out of 5 muscle strength in all muscle groups. Normal speech. A/P Problem List: (1) UTI (urinary tract infection) ICD Code: N39.0 - Urinary tract infection, site not specified (2) Weakness generalized ICD Code: R53.1 - Weakness Status: Acute (3) Altered mental status ICD Code: R41.82 - Altered mental status, unspecified (4) Hypokalemia ICD Code: E87.6 - Hypokalemia (5) Decreased appetite ICD Code: R63.0 - Anorexia (6) Nausea ICD Code: R11.0 - Nausea Status: Acute (7) Non-sustained ventricular tachycardia ICD Code: I47.2 - Ventricular tachycardia Plan: Patient asymptomatic. Keep potassium more than 4 and magnesium more than 2. Continue to monitor on telemetry. Assessment and Plan (1) UTI (urinary tract infection) Plan: UA positive with cloudy urine, large leukocyte esterase and innumerable WBCs. Place patient on outpatient observation. The patient was given IV Rocephin in the emergency department. I will continue with IV Rocephin 2 g IV daily. Follow-up urine cultures. (2) Weakness generalized Plan: Patient with worsening generalized weakness likely secondary to urinary tract infection and poor oral intake. Physical therapy consultation. (3) Altered mental status Plan: As per ED physician reports, family reported that the patient was more confused than usual. Suspected encephalopathy secondary to UTI. However patient is fully awake and alert and oriented 3 at the time of interview. Continue to monitor neurological status. (4) Hypokalemia Plan: Likely due to decreased oral intake secondary to UTI and associated nausea. That is post oral replacement. Continue to monitor BMP and replace as needed. (5) Decreased appetite Plan: Likely secondary to urinary tract infection. Dietitian consulted - recommendations pending. (6) Nausea Plan: Likely secondary to urinary tract infection. We will place on Zofran ODT. Assessment and Plan Lovenox for DVT prophylaxis. Discharge Planning Discharge in a.m. pending urine culture ID and sensitivities. PT recommended home health. Problem Qualifiers (1) UTI (urinary tract infection): Qualified Codes: N30.00 - Acute cystitis without hematuria (2) Altered mental status: Qualified Codes: R41.82 - Altered mental status, unspecified Harrison Alcaraz MD Mar 30, 2018 16:35
[2018-03-31] VITALS: BP 111/60; PULSE 80; RESP 18; TEMP 98; O2SAT 95
[2018-03-31 00:30] VITALS: PULSE 68
[2018-03-31 04:00] VITALS: BP 137/65; PULSE 69; RESP 18; TEMP 98.5; O2SAT 96
[2018-03-31 04:30] VITALS: PULSE 68
[2018-03-31 08:41] VITALS: BP 146/82; PULSE 87; RESP 20; TEMP 98.3; O2SAT 95
[2018-03-31] MEDS: SODIUM CHLORIDE 0.9% FLUSH 10 ML FLUSH IV FLUSH SCH (09:36)
[2018-03-31] MEDS ORDERED: CEFU1TAB20 PO (10:57)
--- NOTE | 2018-03-31 11:03 | HHI.DCPOC ---
Discharge Care Plan Diagnosis: (1) UTI (urinary tract infection) (2) Altered mental status (3) Nausea (4) Decreased appetite (5) Non-sustained ventricular tachycardia (6) Weakness generalized (7) Hypokalemia Goals to Promote Your Health * To prevent worsening of your condition and complications * To maintain your health at the optimal level Directions to Meet Your Goals Take your medications as prescribed Follow your dietary instruction Follow activity as directed Keep your appointments as scheduled Take your immunizations and boosters as scheduled If your symptoms worsen call your PCP, if no PCP go to Urgent Care Center or Emergency Room Smoking is Dangerous to Your Health. Avoid second hand smoke Call the 24-hour hour crisis hotline for domestic abuse at Harrison Alcaraz MD Mar 31, 2018 11:02
--- NOTE | 2018-03-31 11:05 | HHI.DS ---
Discharge Summary Admission Date Mar 29, 2018 at 13:52 Discharge Date: Mar 31, 2018 Admitting Diagnosis CONFUSION, UTI, DEBILITY(UNABLE TO AMBULATE) (1) UTI (urinary tract infection) ICD Code: N39.0 - Urinary tract infection, site not specified (2) Weakness generalized ICD Code: R53.1 - Weakness Status: Acute (3) Altered mental status ICD Code: R41.82 - Altered mental status, unspecified (4) Hypokalemia ICD Code: E87.6 - Hypokalemia (5) Decreased appetite ICD Code: R63.0 - Anorexia (6) Nausea ICD Code: R11.0 - Nausea Status: Acute (7) Non-sustained ventricular tachycardia ICD Code: I47.2 - Ventricular tachycardia Brief History - From Admission This is an 87-year-old female with past medical history as stated below who presents to [facility] brought in by family members due to increasing generalized weakness so severe now that the patient was not able to ambulate without assistance. The patient states that approximately a few weeks ago she has been having a poor appetite not eating or drinking much fluids and sleeping more than usual. Upon review of her medical records it is found that the patient brought the patient previously to the hospital she was found to have a UTI which was treated with oral antibiotics. Patient was previously seen in the emergency department March 03. At that time urine culture did not show any growth in 48 hours. The patient denies currently any chest pain or shortness of breath, headache, dizziness. States that she has been feeling nauseous for the past few days but denies fevers or chills. Patient also denies vomiting. The patient denies any abdominal pain at the time of interview. As per ED physician accounts, the family stated also that the patient was more confused than usual. CBC/BMP: 03/30/18 0800 03/30/18 0800 Significant Findings Laboratory Tests Test 03/29/18 11:24 03/29/18 11:49 03/30/18 08:00 Monocytes (%) (Auto) 12.3 % (0.0-8.0) 11.2 % (0.0-8.0) Prothrombin Time 11.7 SEC (9.8-11.6) Blood Urea Nitrogen 27 MG/DL (7-18) 30 MG/DL (7-18) Albumin 3.0 GM/DL (3.4-5.0) 2.8 GM/DL (3.4-5.0) Calcium Level 8.4 MG/DL (8.5-10.1) Aspartate Amino Transf (AST/SGOT) 50 U/L (15-37) 56 U/L (15-37) Potassium Level 3.4 MEQ/L (3.5-5.1) Estimat Glomerular Filtration Rate 65 ML/MIN (>89) 67 ML/MIN (>89) Troponin I LESS THAN 0.02 NG/ML Urine Color DARK-YELLOW (YELLW/STRAW) Urine Turbidity CLOUDY (CLEAR) Urine Protein 30 mg/dL (NEG-TRACE) Urine Occult Blood TRACE (NEG) Urine Urobilinogen 4.0 MG/DL (LESS THAN Urine Leukocyte Esterase LARGE (NEG) Urine RBC 15 /hpf (0-3) Urine Bacteria OCC /hpf (NONE) Urine Mucus MANY /lpf (OCC) PE at Discharge GENERAL: Very thin, elderly, frail patient, not in acute distress. SKIN: No rashes, ecchymoses or lesions. Cool and dry. HEAD: Atraumatic. Normocephalic. No temporal or scalp tenderness. EYES: Pupils equal round and reactive. Extraocular motions intact. No scleral icterus. No injection or drainage. ENT: Nose without bleeding, purulent drainage or septal hematoma. Throat without erythema, tonsillar hypertrophy or exudate. Uvula midline. Airway patent. NECK: Trachea midline. No JVD or lymphadenopathy. Supple, nontender, no meningeal signs. CARDIOVASCULAR: Regular rate and rhythm without murmurs, gallops, or rubs. RESPIRATORY: Clear to auscultation. Breath sounds equal bilaterally. No wheezes , rales, or rhonchi. GASTROINTESTINAL: Abdomen soft, mildly tender in hypogastric region, nondistended. No hepato-splenomegaly, or palpable masses. No guarding. MUSCULOSKELETAL: Extremities without clubbing, cyanosis, or edema. No joint tenderness, effusion, or edema noted. No calf tenderness. Negative Homans sign bilaterally. NEUROLOGICAL: Awake and alert. Cranial nerves II through XII intact. Motor and sensory grossly within normal limits. Five out of 5 muscle strength in all muscle groups. Normal speech. Pt Condition on Discharge: Good Discharge Disposition: Disch w/ Home Health Serv Discharge Instructions DIET: Follow Instructions for: As Tolerated, No Restrictions Activities you can perform: See Additionl Instruction Other Activity Instructions: As per PT oob w assistance only Harrison Alcaraz MD Mar 31, 2018 11:04
--- NOTE | 2018-03-31 11:06 | HHI.FF ---
Face to Face Verification Diagnosis: (1) UTI (urinary tract infection) (2) Weakness generalized (3) Nausea (4) Decreased appetite (5) Non-sustained ventricular tachycardia Physical Therapy Order: Improve ambulation, Strength and gait training Home Health Nursing Order: Nursing assessment with vital signs I have seen patient Milena Hardy on 03/31/18. My clinical findings support the need for the requested home health care services because: Limited ability to care for self High risk of falls Infection w/ risk of complications I certify that my clinical findings support that this patient is homebound because: Unsteady gait/balance Unsafe to leave home unassisted Unable to use public transportation Harrison Alcaraz MD Mar 31, 2018 11:06
[2018-03-31 12:17] VITALS: BP 154/67; PULSE 74; RESP 20; TEMP 97.9; O2SAT 97
== END 2018-03-31 12:47 | disposition home or self-care (01) ==
LOC: NEPC 10:46 → NEDA 13:52 → INTOOBSV 13:52 → N05B 14:50
PROVIDERS: ADMIT Hospitalist; ATTEND Hospitalist
DX: N30.00 Acute cystitis without hematuria (principal); R53.1 Weakness; R41.82 Altered mental status, unspecified; E87.6 Hypokalemia; R63.0 Anorexia; I47.2 Ventricular tachycardia; I45.10 Unspecified right bundle-branch block; I10 Essential (primary) hypertension; E78.5 Hyperlipidemia, unspecified; E89.0 Postprocedural hypothyroidism; M81.0 Age-related osteoporosis without current pathological fracture; F17.210 Nicotine dependence, cigarettes, uncomplicated; Z79.899 Other long term (current) drug therapy; Z79.82 Long term (current) use of aspirin
CPT/HCPCS: 80053; 81001; 82550; 83690; 83735; 83880; 84484; 85025; 85610; 85730; 87086; 93005; 96365; 96372; 97110; 97162; 99285; G0378; G8987; G8988; J0696; J1650; 87077; 87186